=== PATIENT | female | born 1995 | race Caucasian/White ===

== ENCOUNTER 2018-05-30 15:16 | Emergency (ER) | payer MEDICAID ==
[~2018-05-30] VITALS: Ht 160 cm; Wt 66.2 kg
[2018-05-30 15:44] VITALS: BP 147/96
--- NOTE | 2018-05-30 15:54 | NUR ---
PATIENT AMB. TO BED #2 WITH MOTHER
--- NOTE | 2018-05-30 15:58 | NUR ---
PATIENT PRESENTS TO ED WITH C/O VAG BLEEDING SINCE May;PT HAS CONTROL IMPLANT. PT STATES BLEEDING IS HEAVY WITH DARK RED AND BLOOD CLOTS; DENIES N/V/ OR DIZZINESS;SKIN IS PINK/WARM/DRY; PATIENT STATES RLQ PAIN OF 4/10 AT THIS TIME;PATIENT POSITIONED FOR COMFORT; HOB ELEVATED; BEDRAILS UP X2; BED DOWN. ER MD MADE AWARE OF PT STATUS.
[2018-05-30 16:42] LABS: PROTHROMBIN TIME 10.1 secs (10.8-13.4)
[2018-05-30 16:44] LABS: BASOPHILS % (AUTO) 0.2 % (0.0-2.0); EOSINOPHILS # (AUTO) 0.1 K/uL (0-0.4); EOSINOPHILS % (AUTO) 1.1 % (0.0-4.0); HEMATOCRIT 40.5 % (36-48); HEMOGLOBIN 13.5 g/dL (12.0-16.0); LYMPHOCYTES % (AUTO) 30.9 % (20.5-51.1); MEAN CORPUSCULAR HEMOGLOBIN 28 pg (27-31); MEAN CORPUSCULAR HGB CONC 33 g/dL (33-37); MEAN CORPUSCULAR VOLUME 84.6 fL (80-94); MONOCYTES # (AUTO) 0.5 K/uL (0.8-1.0); NEUTROPHILS # (AUTO) 3.9 K/uL (1.8-7.7); NEUTROPHILS % (AUTO) 59.8 % (42.2-75.2); PLATELET COUNT (AUTO) 214 K/uL (140-450); RED BLOOD CELL COUNT(AUTO) 4.79 MIL/uL (4.20-5.40); RED CELL DISTRIBUTION WIDTH 12.7 % (11.6-13.7); WHITE BLOOD COUNT (AUTO) 6.5 K/uL (4.8-10.8)
[2018-05-30 16:47] LABS: APPEARANCE,URINE HAZY (CLEAR); BILIRUBIN,URINE NEGATIVE (NEGATIVE); BLOOD, URINE 3+ (NEGATIVE); COLOR,URINE BLOODY (YELLOW); LEUKOCYTE ESTERASE ,URINE 1+ (NEGATIVE); NITRITE, URINE NEGATIVE (NEGATIVE); UGLUCOSE NEGATIVE (NEGATIVE)
[2018-05-30 16:57] LABS: RBC,URINE TOO NUMEROUS TO COUN /HPF (0-5); WBC,URINE 6-15 (FEW) /HPF (0-5)
--- NOTE | 2018-05-30 17:05 | NUR ---
DR MORTON AT BEDSIDE.
--- NOTE | 2018-05-30 18:22 | NUR ---
Patient discharged with v/s stable. Written and verbal after care instructions given and explained. Patient verbalized understanding. Ambulatory with steady gait. All questions addressed prior to discharge. Advised to follow up with PMD.
[2018-05-30 18:23] VITALS: BP 128/86
== END 2018-05-30 18:22 | disposition home or self-care (01) ==
LOC: MED 15:16
DX: N93.8 Other specified abnormal uterine and vaginal bleeding (principal)
CPT/HCPCS: 36415; 76830; 81001; 81025; 84702; 85025; 85610; 85730; 87086; 99284; Q0092

== ENCOUNTER 2020-02-06 10:57 | Emergency (ER) | payer MEDICAID ==
[~2020-02-06] VITALS: Ht 160 cm; Wt 59.0 kg
[2020-02-06 11:01] VITALS: BP 126/83
--- NOTE | 2020-02-06 11:05 | NUR ---
PT C/O RIGHT INNER THIGH W/ REDNESS SWELLING CIRCUMFERENCE SINCE YESTERDAY. PT DENIES ANY FEVER, CP, SOB, OR COUGH AT THIS TIME; PATIENT STATES PAIN OF 10/10 AT THIS TIME; VSS; PATIENT POSITIONED FOR COMFORT; HOB ELEVATED; BEDRAILS UP X1; BED DOWN. ER MD MADE AWARE OF PT STATUS.
--- NOTE | 2020-02-06 11:05 | NUR ---
AMBULATED TO BED 11
--- NOTE | 2020-02-06 11:06 | NUR ---
Patient being evaluated by Dr. Weaver at bedside.
[2020-02-06] MEDS ORDERED: cephALEXin 500 MG CAP PO ONE (11:25)
[2020-02-06] MEDS ORDERED: SULFAMETH/TRIMETH DS 800/160MG 1 TAB PO ONE (11:25)
[2020-02-06 11:34] VITALS: BP 115/77
--- NOTE | 2020-02-06 11:34 | NUR ---
Patient discharged with v/s stable. Written and verbal after care instructions given and explained. Patient alert, oriented and verbalized understanding of instructions. Ambulatory with steady gait. All questions addressed prior to discharge. ID band removed. Patient advised to follow up with PMD. Rx of Bactrim and Keflex given. Patient educated on indication of medication including possible reaction and side effects. Opportunity to ask questions provided and answered.
== END 2020-02-06 11:34 | disposition home or self-care (01) ==
LOC: MED 10:57
DX: L03.115 Cellulitis of right lower limb (principal)
CPT/HCPCS: 81025; 99283

== ENCOUNTER 2020-02-13 22:08 | Emergency (ER) | payer MEDICAID ==
[~2020-02-13] VITALS: Ht 162.6 cm; Wt 65.3 kg
[2020-02-13 22:16] VITALS: BP 147/98
--- NOTE | 2020-02-13 22:20 | NUR ---
PT TAKEN TO BED 2
--- NOTE | 2020-02-13 22:32 | NUR ---
24 Y/O F PRESENTS TO ED C/O ABSCESS ON THE RIGHT UPPER INNER THIGH X 1 WEEK. PT STATES SHE WAS SEEN HERE LAST WEEK FOR HER ABSCESS AND WAS PRESCRIBED ANTIBIOTICS, WHICH SHE IS STILL CURRENTLY TAKING. ABSCESS SHOWS NO S/S OF INFECTION. NO REDNESS, NO DISCHARGE. TENDER ON THE SURROUNDING AREA. PT STATES ABSCESS HAS IMPROVED SINCE BUT IS NOT COMPLAINING OF PAIN 6/10. PT STATES PAIN GETS WORST WHEN SHE IS CONSTANTLY WALKING DUE TO SKIN RUBBING TOGETHER. VSS. BED LOCKED AND IN LOWEST POSITION, SIDE RAIL UP X1. WILL CONTINUE TO MONITOR. MHX: CHARLINEIES RENÉ
--- NOTE | 2020-02-13 22:40 | NUR ---
DR. GERMAIN AT BEDSIDE EVALUATING PT.
[2020-02-13 23:04] VITALS: BP 147/98
== END 2020-02-13 23:05 | disposition home or self-care (01) ==
LOC: MED 22:08
DX: L02.415 Cutaneous abscess of right lower limb (principal)
CPT/HCPCS: 99283